=== PATIENT | male | born 1955 | race Caucasian/White ===

== ENCOUNTER → 2016-08-23 | Outpatient (CLI) | payer MEDICARE ==
[~2016-08-23] MED LIST: GASTROGRAFIN SOLUTION 30ML (Q9963) As Ordered ONE; ISOVUE-370 76% 100ML VIAL (Q9967) As Ordered ONE
--- NOTE | 2016-08-23 12:41 | REP ---
CT ABDOMEN AND PELVIS: Performed as CT abdomen without IV contrast, CT abdomen and pelvis with IV and oral contrast. INDICATION: History of ulcerative colitis, with recurrent abdominal pain and bleeding. COMPARISON: CT abdomen/pelvis 06/09/2015, CT abdomen and pelvis 12/12/2011. TECHNIQUE: After drinking two cups of oral contrast, each containing 10 mL Gastrografin, 100 ml Isovue 370 mg/mL was injected intravenously. Sequentially 3 mm contiguous spiral axial sections were obtained through the abdomen and pelvis. FINDINGS: Small amount of dependent atelectasis/scarring present in lung bases bilaterally. There is mild diffuse fatty infiltration of liver. Small cyst is noted in the left hepatic lobe of 8 mm diameter, previously 9 mm diameter on 06/09/2015. Spleen and pancreas are normal. There is a small phrygian cap within the gallbladder fundus with subtle mural calcification noted within the phrygian cap. 4 mm calculus is noted within the gallbladder neck. Adrenal glands and kidneys are normal. Stomach and small bowel are within normal limits. There is no small bowel obstruction. Terminal ileum is normal. There has been prior appendectomy. Surgical clips are noted inferior to the base of cecum. Atherosclerotic changes are noted in the aorta and iliac arteries, moderate. There is no retroperitoneal adenopathy. There is extensive diverticulosis seen throughout the sigmoid colon without acute inflammatory process. The remainder of colon is unremarkable. There is no free air or ascites. Bladder is contracted bones and soft tissues within normal limits . There is no free air or ascites. IMPRESSION: 1. Extensive diverticulosis seen throughout sigmoid colon without acute inflammatory process. 2. Contracted gallbladder with phrygian cap. Minimal mural calcification is suggested within the phrygian cap. Additionally there is a 4 mm calculus within the dependent portion of the gallbladder neck. 3. Prior appendectomy. Signed by Beba Sullivan MD 08/25/2016 07:42 P
== END ==
LOC: M RAD 09:05
PROVIDERS: ATTEND Physician Assistant
DX: K57.30 Diverticulosis of large intestine without perforation or abscess without bleeding (principal); K80.70 Calculus of gallbladder and bile duct without cholecystitis without obstruction
CPT/HCPCS: 74178; Q9963; Q9967

== ENCOUNTER → 2017-03-20 | Outpatient (CLI) | payer MEDICARE ==
--- NOTE | 2017-03-20 14:59 | REP ---
TWO-VIEW CHEST: REASON: COPD and tobacco abuse. COMPARISON: 06/20/2014, the latest prior. FINDINGS: The superior mediastinal structures are midline. The cardiac silhouette is unremarkable in size, shape, and position. The diaphragmatic surfaces of the lungs are regular, and the costophrenic angles are clear. The pulmonary real are clear. The imaged osseous structures are intact. IMPRESSION: There is no acute cardiopulmonary disease. Consider further evaluation with screening chest CT if clinically relevant. Signed by Tereso Kurtz DO 03/20/2017 04:27 P
== END ==
LOC: M SMT 14:12
PROVIDERS: ATTEND Internal Medicine Pulmonary Disease
DX: J44.9 Chronic obstructive pulmonary disease, unspecified (principal); Z87.891 Personal history of nicotine dependence

== ENCOUNTER 2017-12-05 11:08 | Day surgery (SDC) | payer MEDICARE ==
[2017-12-05] MEDS: NS 1,000 ML IV (12:19)
[2017-12-05] MEDS ORDERED: LIDOCAINE 2% INJ 100 MG/5 ML SDV (FOR ANES.) As Ordered (13:01)
[2017-12-05] MEDS ORDERED: PROPOFOL 200 MG/20 ML VIAL As Ordered (13:01)
== END 2017-12-05 14:08 | disposition home or self-care (01) ==
LOC: M OPP 11:08
DX: K51.90 Ulcerative colitis, unspecified, without complications (principal); R19.4 Change in bowel habit; K57.30 Diverticulosis of large intestine without perforation or abscess without bleeding; K64.8 Other hemorrhoids; E78.5 Hyperlipidemia, unspecified; H81.09 Meniere's disease, unspecified ear; M19.90 Unspecified osteoarthritis, unspecified site; J44.9 Chronic obstructive pulmonary disease, unspecified; R06.83 Snoring; Z87.891 Personal history of nicotine dependence; Z79.899 Other long term (current) drug therapy; Z80.6 Family history of leukemia; Z80.7 Family history of other malignant neoplasms of lymphoid, hematopoietic and related tissues
CPT/HCPCS: 45380

== ENCOUNTER → 2017-12-16 | Outpatient (CLI) | payer MEDICARE | LOC: M SMT 10:37 | DX: M25.522 Pain in left elbow (principal) | CPT/HCPCS: 73080 ==

== ENCOUNTER → 2018-03-31 | Outpatient (CLI) | payer MEDICARE ==
[2018-03-31 13:30] LABS: BASO # 0.1 10^3/uL (0.0-0.2); BASO % 0.7 % (0.0-1.0); HEMATOCRIT 42.6 % (42.0-52.0); HEMOGLOBIN 14.2 g/dl (13.5-17.5); IMMATURE GRANULOCYTE % 0.1 % (0-3.0); LYMPH # 2.6 10^3/uL (1.5-4.5); LYMPH % 34.8 % (24.0-44.0); MEAN CORPUSCULAR HEMOGLOBIN 30.1 pg (27.0-33.0); MEAN CORPUSCULAR HGB CONC 33.3 g/dl (32.0-36.5); MEAN CORPUSCULAR VOLUME 90.4 fl (80.0-96.0); MONO # 0.8 10^3/uL (0.0-0.8); NEUTROPHILS % 53.4 % (36.0-66.0); PLATELET COUNT, AUTOMATED 202 10^3/uL (150-450); RED BLOOD COUNT 4.71 10^6/uL (4.30-6.10); RED CELL DISTRIBUTION WIDTH 13.5 % (11.5-14.5); WHITE BLOOD COUNT 7.4 10^3/uL (4.0-10.0)
[2018-03-31 13:50] LABS: ALBUMIN 3.7 GM/DL (3.2-5.2); ALBUMIN/GLOBULIN RATIO 1.19 (1.00-1.93); ALKALINE PHOSPHATASE 64 U/L (45-117); ALT/SGPT 22 U/L (12-78); ANION GAP 6 MEQ/L (8-16); AST/SGOT 14 U/L (7-37); BILIRUBIN,TOTAL 0.5 MG/DL (0.2-1.0); BLOOD UREA NITROGEN 18 MG/DL (7-18); CALCIUM LEVEL 8.7 MG/DL (8.8-10.2); CARBON DIOXIDE LEVEL 31 MEQ/L (21-32); CHLORIDE LEVEL 106 MEQ/L (98-107); CHOLESTEROL LEVEL 130 MG/DL (<200); CREATININE FOR GFR 0.94 MG/DL (0.70-1.30); FREE T4 0.93 NG/DL (0.76-1.46); GLOMERULAR FILTRATION RATE > 60.0 (>49); GLUCOSE, FASTING 99 MG/DL (70-100); HDL CHOLESTEROL 57 MG/DL (>40); LDL CHOLESTEROL 60.6 MG/DL (<100); NON-HDL-C 73 MG/DL; POTASSIUM SERUM 4.5 MEQ/L (3.5-5.1); SODIUM LEVEL 143 MEQ/L (136-145); TOTAL PROTEIN 6.8 GM/DL (6.4-8.2); TRIGLYCERIDES LEVEL 62 MG/DL (<150)
[2018-04-01 14:15] LABS: PSA TOTAL 0.6 ng/mL (0.0-4.0)
== END ==
LOC: M SMT 08:14
DX: K51.911 Ulcerative colitis, unspecified with rectal bleeding (principal); Z13.220 Encounter for screening for lipoid disorders; Z12.5 Encounter for screening for malignant neoplasm of prostate
CPT/HCPCS: 84443

== ENCOUNTER 2018-04-18 18:08 | Emergency (ER) | payer MEDICARE | END 2018-04-18 20:23 | disposition home or self-care (01) | LOC: M ED 18:08 | DX: S46.912A Strain of unspecified muscle, fascia and tendon at shoulder and upper arm level, left arm, initial encounter (principal); X58.XXXA Exposure to other specified factors, initial encounter; Y92.9 Unspecified place or not applicable; Y93.9 Activity, unspecified; Y99.9 Unspecified external cause status; M19.019 Primary osteoarthritis, unspecified shoulder; H81.01 Meniere's disease, right ear; G89.29 Other chronic pain; M54.9 Dorsalgia, unspecified; M54.2 Cervicalgia; Z87.891 Personal history of nicotine dependence; Z79.899 Other long term (current) drug therapy | CPT/HCPCS: 73030 ==

== ENCOUNTER → 2018-11-18 | Outpatient (CLI) | payer MEDICARE ==
[~2018-11-18] MED LIST changes: +ALBU83IN INH; +CETI10TA PO; +DIAZ5TAB PO; -GASTROGRAFIN SOLUTION 30ML (Q9963) As Ordered ONE; +HYDR-3716 PO; -ISOVUE-370 76% 100ML VIAL (Q9967) As Ordered ONE; +PROAAER10 INH; +ROSU5TAB4 PO; +VITA200016 PO
--- NOTE | 2018-11-18 10:22 | REP ---
RIGHT ELBOW, TWO VIEWS: HISTORY: Pain. There is no acute fracture or dislocation. The joint space is normal in appearance. IMPRESSION: There is no acute fracture or dislocation. Electronically Signed by Lino Parrish MD 11/18/2018 10:30 A
[2018-11-18 10:25] LABS: BASO % 0.6 % (0.0-1.0); HEMATOCRIT 44.1 % (42.0-52.0); HEMOGLOBIN 14.5 g/dl (13.5-17.5); LYMPH % 27.6 % (24.0-44.0); MEAN CORPUSCULAR HEMOGLOBIN 29.9 pg (27.0-33.0); MEAN CORPUSCULAR HGB CONC 32.9 g/dl (32.0-36.5); MEAN CORPUSCULAR VOLUME 90.9 fl (80.0-96.0); MONO # 0.8 10^3/uL (0.0-0.8); MONO % 10.6 % (0.0-5.0); NEUTROPHILS # 4.4 10^3/uL (1.8-7.7); NEUTROPHILS % 61.1 % (36.0-66.0); PLATELET COUNT, AUTOMATED 257 10^3/uL (150-450); RED BLOOD COUNT 4.85 10^6/uL (4.30-6.10); WHITE BLOOD COUNT 7.2 10^3/uL (4.0-10.0)
[2018-11-18 10:56] LABS: ALBUMIN 3.9 GM/DL (3.2-5.2); ALT/SGPT 18 U/L (12-78); BILIRUBIN,TOTAL 0.4 MG/DL (0.2-1.0); BLOOD UREA NITROGEN 18 MG/DL (7-18); CARBON DIOXIDE LEVEL 29 MEQ/L (21-32); CHLORIDE LEVEL 106 MEQ/L (98-107); CHOLESTEROL LEVEL 141 MG/DL (<200); CHOLESTEROL RISK RATIO 2.563 (<5); CREATININE FOR GFR 0.83 MG/DL (0.70-1.30); GLOMERULAR FILTRATION RATE > 60.0 (>49); GLUCOSE, FASTING 98 MG/DL (70-100); HDL CHOLESTEROL 55 MG/DL (>40); LDL CHOLESTEROL 71 MG/DL (<100); NON-HDL-C 86 MG/DL; POTASSIUM SERUM 4.9 MEQ/L (3.5-5.1); SODIUM LEVEL 140 MEQ/L (136-145); TRIGLYCERIDES LEVEL 74 MG/DL (<150)
[2018-11-18 11:01] LABS: TOTAL 25(OH) VITAMIN D 38.2 NG/ML (30.0-100.0); VITAMIN B12 LEVEL 314 PG/ML
[2018-11-18 11:02] LABS: FOLATE 15.5 NG/ML
[2018-11-19 14:14] LABS: PSA TOTAL 0.7 ng/mL (0.0-4.0)
== END ==
LOC: M SMT 07:52
PROVIDERS: ATTEND Physician Assistant
DX: Z12.5 Encounter for screening for malignant neoplasm of prostate (principal); E78.2 Mixed hyperlipidemia; K51.911 Ulcerative colitis, unspecified with rectal bleeding; R53.83 Other fatigue; M25.521 Pain in right elbow; Z79.899 Other long term (current) drug therapy
CPT/HCPCS: 36415; 73070; 80053; 80061; 82306; 82607; 82746; 84154; 85025; G0472

== ENCOUNTER → 2019-06-21 | Outpatient (CLI) | payer MEDICARE ==
[~2019-06-21] MED LIST changes: -ROSU5TAB4 PO; +ROSU5TAB5 PO
[2019-06-21 12:02] LABS: BASO % 0.5 % (0.0-1.0); HEMATOCRIT 49.2 % (42.0-52.0); HEMOGLOBIN 15.8 g/dl (13.5-17.5); LYMPH # 2.3 10^3/uL (1.5-5.0); LYMPH % 27.9 % (24.0-44.0); MEAN CORPUSCULAR HEMOGLOBIN 30.7 pg (27.0-33.0); MEAN CORPUSCULAR HGB CONC 32.1 g/dl (32.0-36.5); MEAN CORPUSCULAR VOLUME 95.7 fl (80.0-96.0); MONO # 0.7 10^3/uL (0.0-0.8); MONO % 8.3 % (0.0-5.0); NEUTROPHILS # 5.2 10^3/uL (1.5-8.5); NEUTROPHILS % 62.8 % (36.0-66.0); PLATELET COUNT, AUTOMATED 211 10^3/uL (150-450); RED BLOOD COUNT 5.14 10^6/uL (4.30-6.10); WHITE BLOOD COUNT 8.2 10^3/uL (4.0-10.0)
[2019-06-21 12:16] LABS: ALBUMIN 3.7 GM/DL (3.2-5.2); ALT/SGPT 20 U/L (12-78); BILIRUBIN,TOTAL 0.5 MG/DL (0.2-1.0); BLOOD UREA NITROGEN 12 MG/DL (7-18); CARBON DIOXIDE LEVEL 30 MEQ/L (21-32); CHLORIDE LEVEL 106 MEQ/L (98-107); CHOLESTEROL LEVEL 127 MG/DL (<200); CHOLESTEROL RISK RATIO 2.396 (<5); CREATININE FOR GFR 0.93 MG/DL (0.70-1.30); FREE T4 1.02 NG/DL (0.76-1.46); GLOMERULAR FILTRATION RATE > 60.0 (>49); GLUCOSE, FASTING 93 MG/DL (70-100); HDL CHOLESTEROL 53 MG/DL (>40); LDL CHOLESTEROL 53 MG/DL (<100); NON-HDL-C 74 MG/DL; POTASSIUM SERUM 4.6 MEQ/L (3.5-5.1); SODIUM LEVEL 142 MEQ/L (136-145); TOTAL PROTEIN 6.7 GM/DL (6.4-8.2); TRIGLYCERIDES LEVEL 106 MG/DL (<150)
[2019-06-21 12:20] LABS: VITAMIN B12 LEVEL 284 PG/ML
[2019-06-23 00:06] LABS: PSA TOTAL 0.7 ng/mL (0.0-4.0)
== END ==
LOC: M SMT 08:41
PROVIDERS: ATTEND Physician Assistant
DX: K51.911 Ulcerative colitis, unspecified with rectal bleeding (principal); E78.2 Mixed hyperlipidemia; F45.8 Other somatoform disorders; Z12.5 Encounter for screening for malignant neoplasm of prostate

== ENCOUNTER → 2019-07-21 | Outpatient (CLI) | payer MEDICARE ==
[~2019-07-21] MED LIST changes: +PROHANCE 279.3MG/ML 15ML VIAL (A9576) As Ordered ONE
--- NOTE | 2019-07-21 14:32 | REP ---
MRI brain: 07/21/2019. Indication: Headache. Comparison: 08/15/2010. Technique: Multiplanar short and long TR sequences of the brain were obtained including post-gadolinium imaging. 14 ml of IV ProHance were administered. Findings: There are no areas of restricted diffusion. There are no areas of pathologic gadolinium enhancement. There is no intracranial mass effect, hydrocephalus or significant hemorrhage. The large intracranial flow voids are unremarkable. There are a few small areas of elevated T2 prolongation scattered throughout the cerebral hemisphere white matter. The midline structures, and craniocervical junction are unremarkable. Small maxillary retention cysts are present. There are no air-fluid levels within the paranasal sinuses or mastoid air cells. Impression: No acute intracranial process. 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 Electronically Signed by Juaquin Cavanaugh DO 07/21/2019 02:24 P
== END ==
LOC: M RAD 12:12
PROVIDERS: ATTEND Physician Assistant
DX: R51 Headache (principal)
CPT/HCPCS: 70553; A9576

== ENCOUNTER → 2019-12-14 | Outpatient (CLI) | payer MEDICARE ==
[~2019-12-14] MED LIST changes: -PROHANCE 279.3MG/ML 15ML VIAL (A9576) As Ordered ONE
== END ==
LOC: M LABSMTC 14:06
PROVIDERS: ATTEND Family Medicine
DX: Z11.59 Encounter for screening for other viral diseases (principal); Z20.828 Contact with and (suspected) exposure to other viral communicable diseases

== ENCOUNTER → 2020-03-15 | Outpatient (REF) | payer MEDICARE ==
[2020-04-10 13:50] LABS: HEMATOCRIT 48.4 % (42.0-52.0); HEMOGLOBIN 15.9 g/dl (13.5-17.5); MEAN CORPUSCULAR HEMOGLOBIN 31.5 pg (27.0-33.0); MEAN CORPUSCULAR HGB CONC 32.9 g/dl (32.0-36.5); PLATELET COUNT, AUTOMATED 221 10^3/uL (150-450); RED BLOOD COUNT 5.04 10^6/uL (4.30-6.10)
[2020-04-10 13:53] LABS: WHITE BLOOD COUNT 13.5 10^3/uL (4.0-10.0)
[2020-04-10 13:54] LABS: ATYPICAL LYMPH 7 % (0-5); LYMPHOCYTES 30 % (16-44); MONOCYTES 1 % (0-5); NEUTROPHILS 62 % (28-66); PLATELET ESTIMATE NORMAL (NORMAL)
[2020-04-19 13:53] LABS: Lyme Disease IgG/IgM Antibodie See Separate Report; PSA TOTAL See Separate Report
[2020-04-20 05:55] LABS: ALBUMIN 3.8 GM/DL (3.2-5.2); ALT/SGPT 23 U/L (12-78); BILIRUBIN,TOTAL 0.2 MG/DL (0.2-1.0); BLOOD UREA NITROGEN 14 MG/DL (7-18); CALCIUM LEVEL 8.7 MG/DL (8.8-10.2); CARBON DIOXIDE LEVEL 35 MEQ/L (21-32); CHLORIDE LEVEL 105 MEQ/L (98-107); CHOLESTEROL LEVEL 156 MG/DL (<200); CREATININE FOR GFR 1.02 MG/DL (0.70-1.30); FOLATE 11.8 NG/ML; FREE T4 1.04 NG/DL (0.76-1.46); GLOMERULAR FILTRATION RATE > 60.0 (>49); GLUCOSE, FASTING 90 MG/DL (70-100); HDL CHOLESTEROL 78 MG/DL (>40); LDL CHOLESTEROL 60 MG/DL (<100); NON-HDL-C 78 MG/DL; POTASSIUM SERUM 4.3 MEQ/L (3.5-5.1); SODIUM LEVEL 141 MEQ/L (136-145); TOTAL PROTEIN 6.8 GM/DL (6.4-8.2); TRIGLYCERIDES LEVEL 90 MG/DL (<150); VITAMIN B12 LEVEL 252 PG/ML
== END ==
LOC: M LAB REF 14:50
PROVIDERS: ATTEND Physician Assistant
DX: Z00.01 Encounter for general adult medical examination with abnormal findings (principal); K51.911 Ulcerative colitis, unspecified with rectal bleeding; E78.2 Mixed hyperlipidemia; W57.XXXA Bitten or stung by nonvenomous insect and other nonvenomous arthropods, initial encounter; Z12.5 Encounter for screening for malignant neoplasm of prostate

== ENCOUNTER → 2020-04-13 | Outpatient (CLI) | payer MEDICARE ==
--- NOTE | 2020-05-02 15:18 | REPPI ---
FIVE VIEWS LEFT KNEE COMPARISON: 05/25/2015. REASON FOR EXAM: Pain. FINDINGS: There is minimal tricompartmental margin osteophytosis essentially unchanged to minimally increased from the prior exam. There is no acute fracture, dislocation, or subluxation. There is no change in the appearance of the compartments. There is mild asymmetric patellofemoral joint space narrowing and minimal medial and lateral compartmental narrowing. IMPRESSION: Chronic changes as described above. PAU
== END ==
LOC: M PLAIMG 13:55
PROVIDERS: ATTEND Physician Assistant
DX: M25.562 Pain in left knee (principal)

== ENCOUNTER → 2020-05-08 | Outpatient (CLI) | payer MEDICARE ==
[2020-05-08 17:59] LABS: BASO # 0.1 10^3/uL (0.0-0.2); BASO % 0.6 % (0.0-1.0); EOS % 0.1 % (0.0-3.0); HEMATOCRIT 50.5 % (42.0-52.0); HEMOGLOBIN 16.4 g/dl (13.5-17.5); LYMPH # 2.6 10^3/uL (1.5-5.0); LYMPH % 29.1 % (24.0-44.0); MEAN CORPUSCULAR HEMOGLOBIN 31.5 pg (27.0-33.0); MEAN CORPUSCULAR HGB CONC 32.5 g/dl (32.0-36.5); MEAN CORPUSCULAR VOLUME 97.1 fl (80.0-96.0); MONO # 0.9 10^3/uL (0.0-0.8); MONO % 9.7 % (0.0-5.0); NEUTROPHILS # 5.4 10^3/uL (1.5-8.5); NEUTROPHILS % 60.2 % (36.0-66.0); PLATELET COUNT, AUTOMATED 260 10^3/uL (150-450)
[2020-05-08 18:21] LABS: ALT/SGPT 18 U/L (12-78); BILIRUBIN,TOTAL 0.3 MG/DL (0.2-1.0); BLOOD UREA NITROGEN 11 MG/DL (7-18); CALCIUM LEVEL 9.5 MG/DL (8.8-10.2); CARBON DIOXIDE LEVEL 32 MEQ/L (21-32); CHLORIDE LEVEL 106 MEQ/L (98-107); CREATININE FOR GFR 0.95 MG/DL (0.70-1.30); GLOMERULAR FILTRATION RATE > 60.0 (>49); GLUCOSE, FASTING 85 MG/DL (70-100); IMMUNOGLOBULIN E 67.8 IU/ML (<100); LDH LACTATE DEHYDROGENASE 158 U/L (87-241); POTASSIUM SERUM 5.3 MEQ/L (3.5-5.1); SODIUM LEVEL 141 MEQ/L (136-145); TOTAL PROTEIN 7.3 GM/DL (6.4-8.2)
[2020-05-11 17:07] LABS: IgG P18 AB Absent (.); IgG P23 AB Absent (.); IgG P28 AB Absent (.); IgG P30 AB Absent (.); IgG P39 AB Absent (.); IgG P41 AB Absent (.); IgG P45 AB Absent (.); IgG P66 AB Absent (.); IgG P93 AB Absent (.); IgM P23 AB Absent (.); IgM P39 AB Absent (.); IgM P41 AB Absent (.); LYME IgG WB INTERPRETATION Negative (.); LYME IgM WB INTERPRETATION Negative (.); RMSFIGG1 Positive (Negative)
== END ==
LOC: M PLALAB 14:51
PROVIDERS: ATTEND Internal Medicine Infectious Disease
DX: A26.0 Cutaneous erysipeloid (principal)

== ENCOUNTER → 2020-05-15 | Outpatient (CLI) | payer MEDICARE ==
--- NOTE | 2020-05-18 16:42 | REP ---
BILATERAL AXILLARY ULTRASOUND HISTORY: Tick bite in January 2020 with axillary adenopathy. FINDINGS: Real-time sonographic evaluation of both axillary regions performed at the site of suspected adenopathy. In the right axilla, a lymph node was identified with a hypoechoic cortex and hyperechoic hilum measuring 2.3 x 1.4 x 2.7 cm. There is mild eccentric cortical thickening up to about 5 mm. This is mildly enlarged. Two other smaller lymph nodes are not significantly enlarged, measuring 1.6 x 0.8 x 1.2 cm and 1.1 x 1.0 x 1.1 cm. In the left axilla, there are two dominant lymph nodes both demonstrating mild eccentric cortical thickening up to 5 mm. These measure 2.1 x 0.8 x 1.4 cm and 2.5 x 1.0 x 1.6 cm. Both demonstrate hypoechoic cortex and hyperechoic hilum. Given the eccentric cortical thickening, these are slightly enlarged. IMPRESSION: One slightly enlarged lymph node in the right axilla and two slightly enlarged lymph nodes in the left axilla, nonspecific. MTDD
--- NOTE | 2020-05-18 16:43 | REP ---
TWO-VIEW CHEST HISTORY: Swollen lymph nodes after a tick bite. COMPARISON: 03/20/2017. TECHNIQUE: Two views of the chest are performed. FINDINGS: There is no acute infiltrate. Lungs are clear. Heart is normal in size. There is mild calcification of the thoracic aorta. The mediastinal silhouette is unchanged. There are mild diffuse degenerative changes of the spine. IMPRESSION: No active pulmonary disease identified. MTDD
== END ==
LOC: M RAD 09:29
PROVIDERS: ATTEND Internal Medicine Infectious Disease
DX: R59.1 Generalized enlarged lymph nodes (principal)

== ENCOUNTER → 2020-05-16 | Outpatient (CLI) | payer MEDICARE ==
[2020-05-16 18:00] LABS: LDH LACTATE DEHYDROGENASE 184 U/L (87-241)
[2020-05-17 14:41] LABS: HIV 1&2 SCREEN CENTAUR NEGATIVE (NEGATIVE)
[2020-05-19 14:10] LABS: B. HENSELAE IgG (CAT SCRATCH) Negative titer (Neg:<1:320); B. HENSELAE IgM (CAT SCRATCH) Negative titer (Neg:<1:100); B. QUINTANA IgG (CAT SCRATCH) Negative titer (Neg:<1:320); B. QUINTANA IgM (CAT SCRATCH) Negative titer (Neg:<1:100); EBV AB TO NUCLEAR ANTIGEN >600.0 U/mL (0.0-17.9); EBV VIRAL CAPSID AG IgG >600.0 U/mL (0.0-17.9); EBV VIRAL CAPSID AG IgM <36.0 U/mL (0.0-35.9)
== END ==
LOC: M PLALAB 13:52
PROVIDERS: ATTEND Internal Medicine Infectious Disease
DX: R21 Rash and other nonspecific skin eruption (principal)

== ENCOUNTER → 2020-06-07 | Outpatient (CLI) | payer MEDICARE ==
[~2020-06-07] MED LIST changes: +ISOVUE-370 76% 100ML VIAL As Ordered ONE
--- NOTE | 2020-06-07 16:08 | REP ---
INDICATION: CHRONIC COUGH, AXILLARY ADENOPATHY COMPARISON: 04/17/2018 TECHNIQUE: Axial noncontrast images from the thoracic inlet to the upper abdomen with coronal and sagittal reformations. This CT examination was performed using the following dose reduction techniques: Automated exposure control, adjustment of mA and/or kv according to the patient's size, and use of iterative reconstruction technique. FINDINGS: Lung real demonstrate moderate emphysematous disease with minimal scattered age-related scarring. Small triangular focus of scarring in the right middle lobe and noncalcified 5 mm nodule in the periphery of the left lower lobe remains stable. No new consolidation, suspicious nodule or mass lesion. No effusion. No pneumothorax. Tracheobronchial tree is patent. Mediastinum demonstrates atherosclerotic changes to the thoracic aorta and coronary arteries without cardiomegaly or pericardial effusion. No axillary, hilar, or mediastinal adenopathy noted. Thyroid gland is normal. Surrounding musculoskeletal structures are intact. Limited upper abdomen demonstrates cholelithiasis and normal bilateral adrenal glands. IMPRESSION: 1. Chronic emphysematous changes and stable scarring in the right middle lobe and 5 mm nodule in the left lower lobe. 2. No acute mediastinal or pleuroparenchymal process. No evidence for adenopathy. 3. Cholelithiasis. <Electronically signed by Yevgeniy Davis > 06/07/20 [id number]
--- NOTE | 2020-06-07 16:15 | REP ---
INDICATION: CHRONIC COUGH, AXILLARY ADENOPATHY. COMPARISON: 08/23/2016 TECHNIQUE: 100 cc Isovue 370 FINDINGS: The nodule seen previously in the left lung base not only on the latest prior examination but on an older examination of 06/09/2015 is again noted, however, it is now calcifying. There are unchanged hepatic cysts. There is cholelithiasis which has developed since the last exam. The spleen, pancreas, adrenal glands, and kidneys are unchanged. There is a simple left renal cyst status quo. The abdominal aorta and para-regions are within normal limits. Calcific atherosclerotic changes again noted status quo. There is no free fluid or free air. The bowel loops and there mesenteries are within normal limits and unchanged. There is no evidence of a mass or adenopathy. Bone window technique throughout the examination shows the osseous structures to be stable and intact. Spinal degenerative changes are again noted. IMPRESSION: 1. Cholelithiasis. 2. Unchanged tiny hepatic cysts. 3. Stable Bosniak class 1 left renal cyst. 4. Benign left lung base nodule. 5. Other findings as described above. <Electronically signed by Tereso Kurtz > 06/07/20 [id number]
== END ==
LOC: M RAD 13:36
PROVIDERS: ATTEND Internal Medicine Infectious Disease
DX: R05 Cough (principal); R59.0 Localized enlarged lymph nodes; R91.8 Other nonspecific abnormal finding of lung field; K80.20 Calculus of gallbladder without cholecystitis without obstruction; N28.1 Cyst of kidney, acquired
CPT/HCPCS: 71250; 74160; Q9967

== ENCOUNTER → 2020-06-15 | Outpatient (CLI) | payer MEDICARE ==
[~2020-06-15] MED LIST changes: -ISOVUE-370 76% 100ML VIAL As Ordered ONE
== END ==
LOC: M WHCPRO 12:55
PROVIDERS: ATTEND Internal Medicine Infectious Disease
DX: R59.0 Localized enlarged lymph nodes (principal); Z53.9 Procedure and treatment not carried out, unspecified reason

== ENCOUNTER → 2020-06-19 | Outpatient (CLI) | payer MEDICARE ==
[~2020-06-19] MED LIST changes: +LIDOCAINE 1% MDV 20ML VIAL As Ordered ONE
[2020-06-19 14:34] VITALS: BP 134/89
--- NOTE | 2020-06-19 17:30 | REP ---
INDICATION: Bilateral axillary lymphadenopathy.. COMPARISON: None. TECHNIQUE: The procedure was performed under the direct supervision of Dr. De Jesus. The risks and benefits of the procedure were explained to the patient and informed consent was obtained. The left axillary lymph node was localized using ultrasound guidance. The skin was prepped and draped in a sterile fashion. 1% lidocaine was used as a local anesthetic. Using ultrasound guidance a 19/20 gauge coaxial needle biopsy system was inserted and advanced into the lymph node. Eight core biopsy samples were obtained and sent to the lab. The patient tolerated the procedure well and there were no immediate complications. After the appropriate amount to monitor convalesce as the patient was discharged from the department. FINDINGS: None IMPRESSION: Technically successful ultrasound-guided left axillary lymph node biopsy. <Electronically signed by Isaac Navarro > 06/19/20 [id number] <Electronically signed by Nabil De Jesus > 06/19/20 [id number]
== END ==
LOC: M IRPRO 12:45
PROVIDERS: ATTEND Internal Medicine Infectious Disease
DX: R59.0 Localized enlarged lymph nodes (principal)

== ENCOUNTER → 2020-07-06 | Outpatient (CLI) | payer MEDICARE ==
[~2020-07-06] MED LIST changes: +ISOVUE-370 76% 100ML VIAL As Ordered ONE; -LIDOCAINE 1% MDV 20ML VIAL As Ordered ONE
--- NOTE | 2020-07-06 16:04 | REPVR ---
PROCEDURE INFORMATION: Exam: CT Head Without Contrast Exam date and time: 07/06/2020 3:42 PM Age: 65 years old Clinical indication: Condition or disease; Other: Cervical lymphadneopathy / daily new onset prince's TECHNIQUE: Imaging protocol: Computed tomography of the head without contrast. Radiation optimization: All CT scans at this facility use at least one of these dose optimization techniques: automated exposure control; mA and/or kV adjustment per patient size (includes targeted exams where dose is matched to clinical indication); or iterative reconstruction. COMPARISON: MRI-Brain W/O FOLL BY WITH 07/21/2019 1:15 PM FINDINGS: Brain: Mild hypoattenuating foci are noted in the anterior lateral ventricular periventricular white matter bilaterally. No intracranial hemorrhage. No mass or acute cortical infarction identified. Cerebral ventricles: Prominence of the ventricular system and subarachnoid spaces is consistent with the patient's age of 65 years. No hydrocephalus or evidence of increased intracranial pressure. Bones/joints: No acute abnormality identified. No acute fracture. Paranasal sinuses: A cyst/polyp is present in the anterior left maxillary sinus. Mastoid air cells: Visualized mastoid air cells are well aerated. Vasculature: Atherosclerotic calcifications are present involving the carotid artery siphons bilaterally. Soft tissues: Unremarkable. IMPRESSION: 1. Age appropriate supratentorial and infratentorial atrophy. 2. Mild chronic white matter microvascular ischemic disease. 3. No acute intracranial abnormality identified. Electronically signed by: Pepe Pruitt On 07/06/2020 16:04:09 PM
--- NOTE | 2020-07-06 16:09 | REPVR ---
PROCEDURE INFORMATION: Exam: CT Neck With Contrast Exam date and time: 07/06/2020 3:42 PM Age: 65 years old Clinical indication: Condition or disease; Other: Cervical lymphadneopathy / daily new onset prince's TECHNIQUE: Imaging protocol: Computed tomography images of the neck with intravenous contrast. Radiation optimization: All CT scans at this facility use at least one of these dose optimization techniques: automated exposure control; mA and/or kV adjustment per patient size (includes targeted exams where dose is matched to clinical indication); or iterative reconstruction. Contrast material: ISOVUE 370; Contrast volume: 75 ml; Contrast route: INTRAVENOUS (IV); COMPARISON: No relevant prior studies available. FINDINGS: Paranasal sinuses: Intraluminal cysts/polyps are present in the bilateral anterior maxillary sinuses. Nasopharynx: Unremarkable. Oropharynx: Bilateral palatine tonsillar tonsilloliths. Hypopharynx: Unremarkable. Larynx: Unremarkable. Normal epiglottis. Retropharyngeal space: Unremarkable. Submandibular/Parotid glands: Normal. Glands are normal in size. Thyroid: Normal. No enlarged or calcified nodules. Lymph nodes: Unremarkable. No lymphadenopathy. Trachea: Visualized trachea is unremarkable. Lungs: Unremarkable as visualized. Bones/joints: C5-C6 degenerative disc disease, slight spondylosis. Soft tissues: Mild centrilobular emphysema bilaterally. IMPRESSION: 1. No significant lymphadenopathy. 2. Pulmonary emphysema. Electronically signed by: Pepe Pruitt On 07/06/2020 16:09:58 PM
== END ==
LOC: M RAD 14:38
PROVIDERS: ATTEND Internal Medicine Infectious Disease
DX: I89.0 Lymphedema, not elsewhere classified (principal); R51.9 Headache, unspecified
CPT/HCPCS: 70450; 70491; Q9967

== ENCOUNTER → 2020-08-07 | Outpatient (REF) | payer MEDICARE ==
[~2020-08-07] MED LIST changes: +ALPR2TAB3 PO; +AMOX500C PO; +BENA25TA5 PO; +HALO0.052 TOP; -ISOVUE-370 76% 100ML VIAL As Ordered ONE
[2020-08-07 18:07] LABS: IMMUNOGLOBULIN G 999 MG/DL (681-1648); IMMUNOGLOBULIN M 44.3 MG/DL (40-230)
[2020-08-07 18:47] LABS: HIV 1&2 SCREEN CENTAUR NEGATIVE (NEGATIVE)
[2020-08-10 18:09] LABS: IgG SERUM (part of Subclasses) 1038 mg/dL (603-1613); IgG Subclass 1 589 mg/dL (248-810); IgG Subclass 2 227 mg/dL (130-555); IgG Subclass 3 34 mg/dL (15-102); IgG Subclass 4 69 mg/dL (2-96)
== END ==
LOC: M SFHCPLAZ 15:50
PROVIDERS: ATTEND Internal Medicine Infectious Disease
DX: R59.0 Localized enlarged lymph nodes (principal)
CPT/HCPCS: 36415; 82784; 82787; 87389; G0463

== ENCOUNTER → 2020-10-27 | Outpatient (CLI) | payer MEDICARE ==
--- NOTE | 2020-10-27 15:29 | REP ---
INDICATION: CERVICAL ADENOPATHY/AXILLARY ADENOPATHY. Patient underwent left axillary lymph node needle biopsy June 19, 2020 with no evidence of lymphoma. COMPARISON: Comparison bilateral axillary sonography 15 May 2020. TECHNIQUE: Bilateral axillary ultrasound is performed as requested. FINDINGS: Today's bilateral axillary sonography demonstrates bilateral axillary lymph nodes. On the left normal benign appearing left axillary lymph nodes are seen. These measure 2.5 x 1.4 x 2.4 cm, 0.8 x 0.7 x 0.9 cm, and 3.0 x 1.0 x 1.3 cm. Each of these lymph nodes demonstrates a thin cortical margin surrounding echogenic fatty hilar architecture. No cortical thickening. In the right axilla there are 3 lymph nodes identified as well measured as follows: 2.2 x 1.3 x 2.7, 1.0 x 0.8 x 1.0, and 1.0 x 0.8 x 0.8 cm respectively. The largest of these lymph nodes demonstrate some cortical thickening up to 5 mm in thickness. This appears more prominent than the ultrasound images from May 15, 2020. The other 2 right axillary lymph nodes have a normal thin cortical mantle and a benign appearance. IMPRESSION: Interval cortical thickening has developed in 1 of the right axillary lymph nodes up to 5 mm in thickness. This is nonspecific. It would be relevant to know if this patient has been recently vaccinated for coronavirus since these vaccines are known to cause transient axillary javi hypertrophy. If the patient had a recent ipsilateral vaccine, interval follow-up sonography would be indicated. If not felt to be related to recent vaccination, ultrasound-guided needle biopsy of this lymph node could be contemplated. <Electronically signed by Kingsley Cunningham > 10/27/20 [id number]
== END ==
LOC: M RAD 14:26
PROVIDERS: ATTEND Internal Medicine Medical Oncology
DX: R59.0 Localized enlarged lymph nodes (principal)

== ENCOUNTER → 2020-12-13 | Outpatient (CLI) | payer MEDICARE ==
--- NOTE | 2020-12-13 12:07 | REP ---
INDICATION: LINDSAY AXILLARY lymphadenopathy. COMPARISON: 10/27/2020. TECHNIQUE: Real-time sonographic evaluation of bilateral axillary regions performed. FINDINGS: Once again in the right axilla there is a lymph node identified with mild cortical thickening appearing essentially unchanged compared to the prior study. This measures about 2.4 x 1.4 x 1.0 cm. Cortical thickening measures about 5-7 mm. A nonenlarged lymph node in the right axilla measures 9 x 5 x 4 mm. There are 2 non suspicious left axillary lymph nodes identified measuring 2.9 x 0.9 x 0.6 cm and 7 x 3 x 3 mm. Neither of these demonstrate cortical thickening. IMPRESSION: No change in the right axillary lymph node demonstrating mild cortical thickening, which is a nonspecific finding. Recommend either continued follow-up or ultrasound-guided biopsy. <Electronically signed by Nabil De Jesus > 12/13/20 [id number]
== END ==
LOC: M RAD 11:12
PROVIDERS: ATTEND Internal Medicine Medical Oncology
DX: R59.0 Localized enlarged lymph nodes (principal)

== ENCOUNTER → 2021-01-02 | Outpatient (CLI) | payer MEDICARE ==
[~2021-01-02] MED LIST changes: +COVI100V IM; +LIDOCAINE 1% MDV 20ML VIAL As Ordered ONE
[2021-01-02 13:01] VITALS: BP 133/77
--- NOTE | 2021-01-02 17:01 | REP ---
INDICATION: RT AXILLARY NODE. COMPARISON: None. TECHNIQUE: The procedure was performed under the direct supervision of Dr. De Jesus. The patient has a history of a 2.4 x 1.4 x 1 cm right axillary lymph node, with cortical thickening measuring about 5-7 mm, seen on a previous ultrasound dated 12/13/2020. The risks and benefits of the procedure were explained to the patient informed consent was obtained. The right axillary lymph node was localized using ultrasound guidance. The skin was prepped and draped in a sterile fashion. 1% lidocaine was used as a local anesthetic. Using ultrasound guidance a 17/18 gauge coaxial needle biopsy system was inserted and advanced into the lymph node. Eight core biopsy samples were obtained and sent to the lab for analysis. The patient tolerated the procedure well and there were no immediate complications. After the appropriate amount to monitor convalescence the patient was discharged from the department. FINDINGS: None IMPRESSION: Ultrasound-guided right axillary lymph node biopsy. <Electronically signed by Isaac Navarro > 01/02/21 [id number] <Electronically signed by Nabil De Jesus > 01/02/21 1312
== END ==
LOC: M IRPRO 12:11
PROVIDERS: ATTEND Internal Medicine Medical Oncology
DX: R59.0 Localized enlarged lymph nodes (principal)

== ENCOUNTER → 2021-04-10 | Outpatient (CLI) | payer MEDICARE ==
[~2021-04-10] MED LIST changes: -LIDOCAINE 1% MDV 20ML VIAL As Ordered ONE
[2021-04-10 13:34] LABS: BASO # 0.1 10^3/uL (0.0-0.2); BASO % 0.8 % (0.0-1.0); EOS # 0.2 10^3/uL (0.0-0.5); EOS % 2.1 % (0.0-3.0); HEMATOCRIT 48.5 % (42.0-52.0); HEMOGLOBIN 16.1 g/dl (13.5-17.5); LYMPH # 2.5 10^3/uL (1.5-5.0); LYMPH % 30.8 % (24.0-44.0); MEAN CORPUSCULAR HEMOGLOBIN 30.9 pg (27.0-33.0); MEAN CORPUSCULAR HGB CONC 33.2 g/dl (32.0-36.5); MEAN CORPUSCULAR VOLUME 93.1 fl (80.0-96.0); MONO % 12.2 % (2.0-8.0); NEUTROPHILS # 4.3 10^3/uL (1.5-8.5); NEUTROPHILS % 53.7 % (36.0-66.0); PLATELET COUNT, AUTOMATED 235 10^3/uL (150-450); RED BLOOD COUNT 5.21 10^6/uL (4.30-6.10)
[2021-04-10 14:20] LABS: BLOOD UREA NITROGEN 19 MG/DL (7-18); CALCIUM LEVEL 9.7 MG/DL (8.8-10.2); CARBON DIOXIDE LEVEL 29 MEQ/L (21-32); CHLORIDE LEVEL 107 MEQ/L (98-107); CREATININE FOR GFR 0.74 MG/DL (0.70-1.30); FREE T4 1.05 NG/DL (0.76-1.46); GLOMERULAR FILTRATION RATE > 60.0 (>49); GLUCOSE, FASTING 78 MG/DL (70-100); MAGNESIUM LEVEL 2.2 MG/DL (1.8-2.4); POTASSIUM SERUM 4.6 MEQ/L (3.5-5.1); SODIUM LEVEL 140 MEQ/L (136-145)
== END ==
LOC: M PLALAB 11:29
PROVIDERS: ATTEND Physician Assistant
DX: R00.2 Palpitations (principal)

== ENCOUNTER → 2021-04-18 | Outpatient (CLI) | payer MEDICARE ==
--- NOTE | 2021-04-18 12:44 | REP ---
INDICATION: ADENOPATHY. COMPARISON: 12/13/2020. TECHNIQUE: Bilateral axillary ultrasound performed and compared to prior study. FINDINGS: In the right axilla a lymph node measures 2.0 x 0.7 x 1.5 cm. The cortex has a maximum thickness of 4 mm. This has decreased since the prior study. There are 2 other subcentimeter lymph nodes identified measuring 7 x 8 and 7 x 5 mm. In the left axilla there is a lymph node measuring 2.7 x 0.7 x 0.9 cm with normal cortical thickness of 2 mm. There are few other subcentimeter lymph nodes having a maximum diameter 5 mm. IMPRESSION: The previously identified mildly prominent right axillary lymph node has decreased in size consistent with a benign finding. Other bilateral axillary lymph nodes have a benign appearance. <Electronically signed by Nabil De Jesus > 04/18/21 [id number]
== END ==
LOC: M RAD 10:41
PROVIDERS: ATTEND Internal Medicine Medical Oncology
DX: R59.0 Localized enlarged lymph nodes (principal)

== ENCOUNTER → 2021-05-25 | Outpatient (CLI) | payer MEDICARE ==
--- NOTE | 2021-05-25 12:08 | REP ---
INDICATION: SCREENING COMPARISON: 04/17/2018 TECHNIQUE: Axial noncontrast images from the thoracic inlet to the upper abdomen using low-dose lung screening technique (LDCT). FINDINGS: Chronic interstitial and emphysematous changes are again appreciated. Small focal triangular scarring in the right middle lobe and noncalcified 4 mm nodule in the periphery of the left lower lobe are again identified and unchanged. No new acute consolidation, suspicious nodule or mass. No effusion. No pneumothorax. Limited evaluation of the mediastinum again demonstrates atherosclerotic changes to the thoracic aorta and coronary arteries. IMPRESSION: Lung-RADS category 2. Stable findings. Management recommendations include annual low-dose CT surveillance. <Electronically signed by Yevgeniy Davis > 05/25/21 [id number]
== END ==
LOC: M RAD 10:59
PROVIDERS: ATTEND Internal Medicine Medical Oncology
DX: Z12.2 Encounter for screening for malignant neoplasm of respiratory organs (principal); F17.210 Nicotine dependence, cigarettes, uncomplicated; J43.9 Emphysema, unspecified; I70.0 Atherosclerosis of aorta; I25.10 Atherosclerotic heart disease of native coronary artery without angina pectoris; J98.4 Other disorders of lung

== ENCOUNTER → 2021-07-17 | Outpatient (CLI) | payer MEDICARE ==
[2021-07-17 15:32] LABS: BASO # 0.1 10^3/uL (0.0-0.2); BASO % 0.7 % (0.0-1.0); HEMATOCRIT 50.1 % (42.0-52.0); HEMOGLOBIN 16.4 g/dl (13.5-17.5); LYMPH # 2.8 10^3/uL (1.5-5.0); LYMPH % 30.2 % (24.0-44.0); MEAN CORPUSCULAR HEMOGLOBIN 30.9 pg (27.0-33.0); MEAN CORPUSCULAR HGB CONC 32.7 g/dl (32.0-36.5); MEAN CORPUSCULAR VOLUME 94.5 fl (80.0-96.0); MONO # 0.8 10^3/uL (0.0-0.8); NEUTROPHILS # 5.5 10^3/uL (1.5-8.5); NEUTROPHILS % 59.9 % (36.0-66.0); PLATELET COUNT, AUTOMATED 246 10^3/uL (150-450); WHITE BLOOD COUNT 9.1 10^3/uL (4.0-10.0)
[2021-07-17 16:01] LABS: BLOOD UREA NITROGEN 12 MG/DL (7-18); CALCIUM LEVEL 9.3 MG/DL (8.8-10.2); CARBON DIOXIDE LEVEL 32 MEQ/L (21-32); CHLORIDE LEVEL 106 MEQ/L (98-107); CREATININE FOR GFR 0.83 MG/DL (0.70-1.30); GLOMERULAR FILTRATION RATE > 60.0 (>49); GLUCOSE, FASTING 87 MG/DL (70-100); POTASSIUM SERUM 4.8 MEQ/L (3.5-5.1); SODIUM LEVEL 142 MEQ/L (136-145)
== END ==
LOC: EDSEX → M PLALAB 12:45
PROVIDERS: ATTEND Internal Medicine Cardiovascular Disease
DX: R94.39 Abnormal result of other cardiovascular function study (principal); R07.89 Other chest pain; R94.31 Abnormal electrocardiogram [ECG] [EKG]; I49.3 Ventricular premature depolarization

== ENCOUNTER → 2021-07-17 | Outpatient (CLI) | payer MEDICARE ==
[2021-07-17 15:33] LABS: MEAN CORPUSCULAR HEMOGLOBIN 30.9 pg (27.0-33.0); MEAN CORPUSCULAR HGB CONC 32.7 g/dl (32.0-36.5); MEAN CORPUSCULAR VOLUME 94.6 fl (80.0-96.0); PLATELET COUNT, AUTOMATED 240 10^3/uL (150-450); RED BLOOD COUNT 5.18 10^6/uL (4.30-6.10); WHITE BLOOD COUNT 9.1 10^3/uL (4.0-10.0)
[2021-07-17 16:00] LABS: ALBUMIN 3.9 GM/DL (3.2-5.2); BLOOD UREA NITROGEN 12 MG/DL (7-18); CALCIUM LEVEL 9.6 MG/DL (8.8-10.2); CARBON DIOXIDE LEVEL 32 MEQ/L (21-32); CHLORIDE LEVEL 106 MEQ/L (98-107); CREATININE FOR GFR 0.84 MG/DL (0.70-1.30); GLOMERULAR FILTRATION RATE > 60.0 (>49); GLUCOSE, FASTING 90 MG/DL (70-100); PHOSPHORUS LEVEL 3.5 MG/DL (2.5-4.9); POTASSIUM SERUM 4.6 MEQ/L (3.5-5.1); SODIUM LEVEL 141 MEQ/L (136-145)
== END ==
LOC: EDSEX → M PLALAB 12:26
PROVIDERS: ATTEND Internal Medicine Cardiovascular Disease
DX: R07.89 Other chest pain (principal); R94.31 Abnormal electrocardiogram [ECG] [EKG]; I49.3 Ventricular premature depolarization; R94.39 Abnormal result of other cardiovascular function study

== ENCOUNTER → 2021-07-18 | Outpatient (CLI) | payer MEDICARE | LOC: EDSEX → M LABSMTC 10:05 | PROVIDERS: ATTEND Internal Medicine Cardiovascular Disease | DX: Z01.812 Encounter for preprocedural laboratory examination (principal); Z20.822 Contact with and (suspected) exposure to COVID-19 ==

== ENCOUNTER → 2021-11-06 | Outpatient (CLI) | payer MEDICARE | LOC: EDSEX → M RAD 11:08 | PROVIDERS: ATTEND Internal Medicine Medical Oncology | DX: R59.0 Localized enlarged lymph nodes (principal) ==

== ENCOUNTER → 2022-02-14 | Outpatient (REF) | payer MEDICARE ==
[~2022-02-14] MED LIST changes: +ALBU2.5V10 INH; -ALBU83IN INH
[2022-02-14 12:56] LABS: BACTERIA, URINE AUTO NEGATIVE (NEGATIVE); MUCUS, URINE SMALL (NEGATIVE); RBC, URINE AUTO 3 /HPF (0-3); SQUAMOUS EPITHELIAL CELL UR AU 0 /HPF (0-6); WBC, URINE AUTO 0 /HPF (0-3)
== END ==
LOC: M LAB REF 12:03
PROVIDERS: ATTEND Physician Assistant Medical
DX: R59.0 Localized enlarged lymph nodes (principal); R63.4 Abnormal weight loss; R30.0 Dysuria; R31.9 Hematuria, unspecified

== ENCOUNTER → 2022-03-07 | Outpatient (REF) | payer MEDICARE ==
[2022-03-07 14:00] LABS: BACTERIA, URINE NONE SEEN; HYALINE CAST, URINE NONE SEEN /lpf (0-1); MUCUS, URINE SMALL AMOUNT (NEGATIVE); SQUAMOUS EPITHELIAL CELL URINE SMALL AMOUNT /hpf (SMALL AMT); WBC, URINE 0-1 /hpf (0-3)
== END ==
LOC: M LAB REF 12:22
PROVIDERS: ATTEND Internal Medicine
DX: R30.0 Dysuria (principal)

== ENCOUNTER → 2022-05-03 | Outpatient (CLI) | payer MEDICARE | LOC: M RAD 13:55 | PROVIDERS: ATTEND Internal Medicine Medical Oncology | DX: R59.0 Localized enlarged lymph nodes (principal) ==

== ENCOUNTER → 2022-05-14 | Outpatient (CLI) | payer MEDICARE | LOC: M ONCR 14:47 | PROVIDERS: ATTEND General Practice | DX: C44.219 Basal cell carcinoma of skin of left ear and external auricular canal (principal); E78.5 Hyperlipidemia, unspecified; F17.210 Nicotine dependence, cigarettes, uncomplicated; J43.9 Emphysema, unspecified; K52.9 Noninfective gastroenteritis and colitis, unspecified; M19.90 Unspecified osteoarthritis, unspecified site; R59.0 Localized enlarged lymph nodes; Z79.51 Long term (current) use of inhaled steroids; Z79.899 Other long term (current) drug therapy; Z80.52 Family history of malignant neoplasm of bladder; Z80.6 Family history of leukemia; Z80.7 Family history of other malignant neoplasms of lymphoid, hematopoietic and related tissues ==

== ENCOUNTER → 2022-05-16 | Outpatient (CLI) | payer MEDICARE | LOC: M WUC 13:30 | PROVIDERS: ATTEND Internal Medicine | DX: R05.9 Cough, unspecified (principal); M47.9 Spondylosis, unspecified ==

== ENCOUNTER 2022-06-17 14:14 | Outpatient (RCR) | payer MEDICARE | END 2022-06-17 23:59 | disposition home or self-care (01) | LOC: M ONCR 14:14 | PROVIDERS: ATTEND General Practice | DX: C44.219 Basal cell carcinoma of skin of left ear and external auricular canal (principal) ==

== ENCOUNTER 2022-06-28 14:22 | Outpatient (RCR) | payer MEDICARE | END 2022-07-17 | LOC: M ONCR 14:22 | PROVIDERS: ATTEND General Practice | DX: C44.219 Basal cell carcinoma of skin of left ear and external auricular canal (principal) ==

== ENCOUNTER → 2022-08-01 | Outpatient (CLI) | payer MEDICARE | LOC: M ONCR 13:52 | PROVIDERS: ATTEND General Practice | DX: C44.219 Basal cell carcinoma of skin of left ear and external auricular canal (principal); N52.9 Male erectile dysfunction, unspecified; R53.82 Chronic fatigue, unspecified; R61 Generalized hyperhidrosis; R68.82 Decreased libido; Z92.3 Personal history of irradiation ==

== ENCOUNTER → 2022-08-08 | Outpatient (CLI) | payer MEDICARE ==
[2022-08-08 09:29] LABS: C REACTIVE PROTEIN QUANTITATIV < 0.40 MG/DL (<1.0)
[2022-08-08 09:30] LABS: IRON (FE) 100 UG/DL (65-175); PERCENT SATURATION 30.8 % (19.7-50.0); RHEUMATOID FACTOR QUANT < 3.5 IU/ML (<14); TOTAL IRON BINDING CAPACITY 325 UG/DL (250-425); TOTAL PROTEIN 6.5 G/DL (5.7-8.2)
[2022-08-08 13:09] LABS: CORTISOL AM 6.7 UG/DL (4.3-22.4)
[2022-08-08 13:14] LABS: FERRITIN 53.3 NG/ML (10.5-307.3)
[2022-08-08 13:15] LABS: FOLLICLE STIMULATING HORMONE 4.6 mIU/ML (1.4-18.1); LUTEINIZING HORMONE 3.4 mIU/ML (1.5-9.3)
[2022-08-08 13:16] LABS: TESTOSTERONE 534 NG/DL (241-827)
== END ==
LOC: M ONCR 08:00
PROVIDERS: ATTEND General Practice
DX: C61 Malignant neoplasm of prostate (principal)

== ENCOUNTER → 2022-09-09 | Outpatient (REF) | payer MEDICARE ==
[~2022-09-09] MED LIST changes: +PRED10TA2 PO; +PRED20TA PO
[2022-09-09 18:09] LABS: APPEARANCE, URINE MANUAL CLEAR (CLEAR); COLOR, URINE MANUAL YELLOW (YELLOW)
[2022-09-09 18:11] LABS: BILIRUBIN, URINE MANUAL NEGATIVE (NEGATIVE); BLOOD URINE MANUAL TRACE (NEGATIVE); GLUCOSE, URINE (UA) MANUAL NEGATIVE (NEGATIVE); KETONE, URINE MANUAL NEGATIVE (NEGATIVE); LEUKOCYTE ESTERASE, URINE MAN TRACE (NEGATIVE); NITRITE, URINE MANUAL NEGATIVE (NEGATIVE); PH,URINE MAN 6.5 UNITS (5.0 - 7.0); PROTEIN, URINE MANUAL NEGATIVE (NEGATIVE); SPECIFIC GRAVITY,URINE MANUAL 1.015 (1.002-1.035); UROBILINOGEN, URINE MANUAL NORMAL (NORMAL)
[2022-09-09 18:34] LABS: BACTERIA, URINE NONE SEEN; HYALINE CAST, URINE NONE SEEN /lpf (0-1); SQUAMOUS EPITHELIAL CELL URINE SMALL AMOUNT /hpf (SMALL AMT)
== END ==
LOC: M LAB REF 16:25
PROVIDERS: ATTEND Internal Medicine
DX: R31.0 Gross hematuria (principal)

== ENCOUNTER → 2022-10-07 | Outpatient (CLI) | payer MEDICARE ==
[~2022-10-07] MED LIST changes: +ISOVUE-370 76% 100ML VIAL As Ordered ONE
== END ==
LOC: M RAD 07:52
PROVIDERS: ATTEND Internal Medicine
DX: R31.0 Gross hematuria (principal); R59.0 Localized enlarged lymph nodes; K76.89 Other specified diseases of liver; K80.20 Calculus of gallbladder without cholecystitis without obstruction; N28.89 Other specified disorders of kidney and ureter; I70.0 Atherosclerosis of aorta; K57.30 Diverticulosis of large intestine without perforation or abscess without bleeding; M47.9 Spondylosis, unspecified
CPT/HCPCS: 74178; 76882; Q9967

== ENCOUNTER → 2023-01-07 | Outpatient (CLI) | payer MEDICARE ==
[~2023-01-07] MED LIST changes: +DULO30CA9 PO; -ISOVUE-370 76% 100ML VIAL As Ordered ONE
== END ==
LOC: M RAD 14:27
PROVIDERS: ATTEND Internal Medicine
DX: Z12.2 Encounter for screening for malignant neoplasm of respiratory organs (principal); R91.1 Solitary pulmonary nodule; J84.10 Pulmonary fibrosis, unspecified; F17.210 Nicotine dependence, cigarettes, uncomplicated

== ENCOUNTER → 2024-01-13 | Outpatient (CLI) | payer MEDICARE ==
[~2024-01-13] MED LIST changes: +ROSU5TAB40 PO; -ROSU5TAB5 PO
== END ==
LOC: M PLAIMG 12:25
PROVIDERS: ATTEND Internal Medicine Pulmonary Disease
DX: R91.8 Other nonspecific abnormal finding of lung field (principal); J47.9 Bronchiectasis, uncomplicated; J43.2 Centrilobular emphysema; J84.9 Interstitial pulmonary disease, unspecified; I25.10 Atherosclerotic heart disease of native coronary artery without angina pectoris; I70.0 Atherosclerosis of aorta; K80.20 Calculus of gallbladder without cholecystitis without obstruction; M25.78 Osteophyte, vertebrae

== ENCOUNTER → 2024-01-14 | Outpatient (REF) | payer MEDICARE | LOC: M SFHCDERM 17:56 | PROVIDERS: ATTEND Dermatology | DX: L60.8 Other nail disorders (principal) ==

== ENCOUNTER 2024-02-17 11:47 | Emergency (ER) | payer MEDICARE ==
[~2024-02-17] VITALS: Ht 172.7 cm; Wt 74.6 kg
[2024-02-17] MEDS ORDERED: ANOR1AER (12:04)
[2024-02-17] MEDS ORDERED: TAMS1CAP17 (12:04)
[2024-02-17 12:40] LABS: BASO # 0.1 10^3/uL (0.0-0.2); BASO % 0.6 % (0.0-1.0); EOS # 0.2 10^3/uL (0.0-0.5); EOS % 2.4 % (0.0-3.0); HEMOGLOBIN 14.5 g/dl (13.5-17.5); LYMPH # 2.2 10^3/uL (1.5-5.0); LYMPH % 27.5 % (24.0-44.0); MEAN CORPUSCULAR HEMOGLOBIN 31.5 pg (27.0-33.0); MEAN CORPUSCULAR HGB CONC 33.7 g/dl (32.0-36.5); MEAN CORPUSCULAR VOLUME 93.5 fl (80.0-96.0); MONO % 12.1 % (2.0-8.0); NEUTROPHILS # 4.5 10^3/uL (1.5-8.5); NEUTROPHILS % 57.1 % (36.0-66.0); PLATELET COUNT, AUTOMATED 211 10^3/uL (150-450); WHITE BLOOD COUNT 7.9 10^3/uL (4.0-10.0)
[2024-02-17 13:00] LABS: LIPASE 46 U/L (12-53)
[2024-02-17 13:02] LABS: ALBUMIN 4.1 G/DL (3.2-5.2); ALKALINE PHOSPHATASE 71 U/L (46-116); ALT/SGPT 22 U/L (7.0-40); AST/SGOT 14 U/L (<34); BILIRUBIN,DIRECT 0.2 MG/DL (<0.4); BILIRUBIN,TOTAL 0.7 MG/DL (0.3-1.2); BLOOD UREA NITROGEN 14 MG/DL (9-23); CALCIUM LEVEL 9.5 MG/DL (8.3-10.6); CARBON DIOXIDE LEVEL 29 MMOL/L (20-31); CHLORIDE LEVEL 106 MMOL/L (98-107); CREATININE FOR GFR 0.89 MG/DL (0.70-1.30); GLOMERULAR FILTRATION RATE > 60.0 (>49); GLUCOSE, FASTING 108 MG/DL (74-106); POTASSIUM SERUM 4.8 MMOL/L (3.5-5.1); SODIUM LEVEL 140 MMOL/L (136-145); TOTAL PROTEIN 7.1 G/DL (5.7-8.2)
[2024-02-17 15:37] LABS: INR 1.09; PARTIAL THROMBOPLASTIN TIME 28.9 SECONDS (24.8-34.2); PROTHROMBIN TIME 13.8 SECONDS (12.5-14.5)
[2024-02-17 15:45] LABS: CK-MB VALUE MASS < 1.0 NG/ML (<3.6)
[2024-02-17 15:48] LABS: CPK CREATINE PHOSPHOKINASE 127 U/L (46-171); MB/CK RELATIVE INDEX 0.78 (< OR =4)
[2024-02-17] MEDS ORDERED: ISOVUE-370 76% 100ML VIAL As Ordered ONE (16:18)
[2024-02-17] MEDS: NS 1,000 ML IV ONE (16:42)
[2024-02-17 17:49] VITALS: TEMP 99.6; O2SAT 98
[2024-02-17 18:01] VITALS: BP 155/70
[2024-02-17] MEDS ORDERED: PANTOPRAZOLE 40MG TAB (PROTONIX) PO ONE (18:35)
[2024-02-17] MEDS ORDERED: PROT1TAB2 PO (18:39)
[2024-02-17] MEDS ORDERED: CARA1TAB6 PO (18:39)
[2024-02-17] MEDS ORDERED: MIRA3350 PO (18:39)
== END 2024-02-17 18:45 | disposition home or self-care (01) ==
LOC: M ED 11:47
DX: K80.20 Calculus of gallbladder without cholecystitis without obstruction (principal); R19.5 Other fecal abnormalities; I25.84 Coronary atherosclerosis due to calcified coronary lesion; K59.00 Constipation, unspecified; R00.1 Bradycardia, unspecified; J44.9 Chronic obstructive pulmonary disease, unspecified; Z87.891 Personal history of nicotine dependence; Z90.89 Acquired absence of other organs; Z79.810 Long term (current) use of selective estrogen receptor modulators (SERMs); Z79.899 Other long term (current) drug therapy
CPT/HCPCS: 36415; 71260; 74177; 80053; 82248; 82550; 82553; 83690; 84484; 85025; 85610; 85730; 86850; 86900; 86901; 93005; 99284; Q9967

== ENCOUNTER 2024-03-12 06:29 | Day surgery (SDC) | payer MEDICARE ==
[~2024-03-12] VITALS: Ht 172.7 cm; Wt 72.2 kg
[~2024-03-12 06:29] MED LIST changes: +ADVI200C18 PO; +ANOR1AER; +CARA1TAB6 PO; +DULC5TAB PO; +MIRA3350 PO; +PROT1TAB2 PO; +TAMS1CAP17 PO
[2024-03-12] MEDS ORDERED: propofoL 200 MG/20 ML VIAL As Ordered ONE (07:02)
[2024-03-12] MEDS ORDERED: LIDOCAINE 2% 100MG/5ML SDV (FOR ANES.) As Ordered ONE (07:02)
[2024-03-12] MEDS ORDERED: fentaNYL 100 MCG/2 ML INJECTION As Ordered ONE (07:07)
[2024-03-12] MEDS: NS 1,000 ML IV ONE (07:14)
[2024-03-12 08:00] VITALS: TEMP 98
[2024-03-12 08:25] VITALS: BP 132/77; O2SAT 98
== END 2024-03-12 08:40 | disposition home or self-care (01) ==
LOC: M OPP 06:29
PROVIDERS: ATTEND Surgery
DX: K63.89 Other specified diseases of intestine (principal); K57.30 Diverticulosis of large intestine without perforation or abscess without bleeding; K92.2 Gastrointestinal hemorrhage, unspecified; K44.9 Diaphragmatic hernia without obstruction or gangrene; K31.89 Other diseases of stomach and duodenum; F17.200 Nicotine dependence, unspecified, uncomplicated; J44.9 Chronic obstructive pulmonary disease, unspecified; Z79.01 Long term (current) use of anticoagulants; Z79.02 Long term (current) use of antithrombotics/antiplatelets; Z79.51 Long term (current) use of inhaled steroids; Z79.899 Other long term (current) drug therapy
CPT/HCPCS: 43239; 45380; 88305; J3010

== ENCOUNTER → 2024-10-04 | Outpatient (REF) | payer MEDICARE ==
[~2024-10-04] MED LIST changes: -HALO0.052 TOP; +HALO0.056 TOP; -ROSU5TAB40 PO; +ROSU5TAB49 PO
== END ==
LOC: M LAB REF 16:04
PROVIDERS: ATTEND Internal Medicine
DX: R51.9 Headache, unspecified (principal)

== ENCOUNTER → 2024-10-11 | Outpatient (CLI) | payer MEDICARE | LOC: M RAD 07:40 | PROVIDERS: ATTEND Internal Medicine | DX: R51.9 Headache, unspecified (principal) ==

== ENCOUNTER → 2025-03-28 | Outpatient (CLI) | payer MEDICARE | LOC: M RAD 16:31 | PROVIDERS: ATTEND Internal Medicine Pulmonary Disease | DX: F17.218 Nicotine dependence, cigarettes, with other nicotine-induced disorders (principal) ==